=== PATIENT | female | born 2000 | race American Indian/Alaskan Native ===

== ENCOUNTER 2024-10-01 10:51 | Observation (INO) | payer SELFPAY ==
[2024-10-01] VITALS (12 sets, daily range): BP systolic 109–112; BP diastolic 65–69; PULSE 73–84; RESP 16–97; TEMP 36.6; O2SAT 96–97; BMI 47.8
[2024-10-01 11:53] LABS: ROM Kit Lot # 57804092; ROM Swab Mixed By: CHUKK; Rupture of Fetal Membranes Negative (Negative); Swb Mxed in Solvent 1 min? Yes
== END 2024-10-01 12:17 | disposition home or self-care (01) ==
PROVIDERS: Admitting Provider Obstetrics & Gynecology; Visit Provider Advanced Practice Midwife
DX: Z34.90 Encounter for supervision of normal pregnancy, unspecified, unspecified trimester (principal); Z3A.00 Weeks of gestation of pregnancy not specified
CPT/HCPCS: 59025; 59899; 84112

== ENCOUNTER 2024-10-08 02:36 | Inpatient (IN) | payer OTHER, SELFPAY ==
[2024-10-08] VITALS (76 sets, daily range): BP systolic 0–156; BP diastolic 0–94; PULSE 61–84; RESP 16–97; TEMP 36.4–37.1; O2SAT 91–99; BMI 48.1
--- NOTE | 2024-10-08 03:27 | XR_ITS ---
Examination: Complete OB ultrasound greater than 14 weeks Date and time of exam: October 08, 2024 0519 hrs. Indications: Leaking amniotic fluid, patient states her water broke today followed by mild pelvic contractions Findings: Viable intrauterine single fetus with single amniotic sac presentation cephalic Cardiac motion 141 BPM Placenta fundal grade 3 Umbilical cord insertion seen Amniotic fluid index 12.4 cm Ovaries obscured by bowel gas. Composite estimated gestational age based on BPD, head circumference, abdominal circumference, femur length is 38 weeks 5 days Estimated weight 3572.7 g. Survey of intracranial anatomy, spinal anatomy, abdominal anatomy, four-chamber heart performed with no abnormalities identified. Impression: Viable intrauterine gestation cephalic presentation Estimated gestational age 38 weeks 5 days Estimated weight 3572.7 g.
[2024-10-08] MEDS: Ampicillin Inj 2,000 MG in SODIUM CHLORIDE 0.9% (P) 100 ML 200 MG IV (05:06)
[2024-10-08] MEDS: RINGERS LACTATED 1000 ML 1,000 ML 125 ML IV ×2 (05:06→23:12)
[2024-10-08 05:29] LABS: Basophils # (Auto) 0.1 Thou/mm3 (0.0-0.2); Basophils % (Auto) 0 % (0-2.5); Eosinophils # (Auto) 0.3 Thou/mm3 (0.0-0.5); Eosinophils % (Auto) 2 % (0-10); Hematocrit 30.4 % (36.0-46.0); Hemoglobin 10.1 g/dL (12.0-16.0); Immature Granulocytes % (Auto) 1 % (0-0); Immature Granulocytes Auto 0.09 Thou/mm3 (0.00-0.00); Lymphocytes # (Auto) 2.3 Thou/mm3 (1.0-4.8); Lymphocytes % (Auto) 18 % (10-50); Mean Corpuscular HGB Conc 33.2 g/dl (31.0-37.0); Mean Corpuscular Volume 75 fL (80-100); Monocytes # (Auto) 1.1 Thou/mm3 (0.0-0.8); Monocytes % (Auto) 9 % (0-12); Neutrophils # (Auto) 8.7 Thou/mm3 (1.8-7.7); Neutrophils % (Auto) 69 % (37-80); Nucleated Red Blood Cell % 0 /100 WBC (0); Platelet Count 266 Thou/mm3 (140-440); RDW Standard Deviation 40.8 fL (36.4-46.3); Red Blood Count 4.04 Miln/mm3 (4.00-5.20); White Blood Count 12.5 Thou/mm3 (3.6-11.0)
[2024-10-08 05:44] LABS: Amphetamine/Metham Scrn,Ur OB Negative (Negative); Benzoylecgonine Screen, Ur OB Negative (Negative); Opiate Screen,Urine OB Negative (Negative); THC Screen,Urine OB Negative (Negative)
[2024-10-08 06:07] LABS: Syphilis Nonreactive (Nonreactive)
--- NOTE | 2024-10-08 06:36 | PRELIM_ITS ---
Obstetric ultrasound. October 08, 2024 at 0519 hoursClinical history: Rupture of membranes.Comparison : No prior study is available for comparison. Findings:There is a gravid uterus with a live fetus in cephalic presentation of mean gestational age 38 weeks and 5 days (by biometry). cardiac activity is present at a heart rate of 141 beats per minute. The placenta is fundal in location, matu rity grade III. There is no evidence of placenta previa or retroplacental hemorrhage. Amniotic fluid is adequate (CARISA = 12.4 cm). Estimated weight is 3512.7 grams+/- 529 grams. Estimated due date by ultrasound is 10/17/2024. The heart (4 ch), urinary bladder, kidney, stomach and spine are seen.Imp ression:Gravid uterus with a live fetus in cephalic presentation of mean gestational age 38 weeks and 5 days. Report Electronically Signed By: Fabricio West 10/08/2024 6:35:20 AM [EST]
--- NOTE | 2024-10-08 07:38 | PD.LDHP ---
Documentation for date of: 10/08/24 OB Labor/Induct. HPI History of Present Illness Chief complaint: leakage of fluid : 2 Para: 0 Term pregnancies: 0 pregnancies: 0 Living children: 0 History of Abortions: Spontaneous and Elective: 1 History of Vaginal deliveries: 0 History of sections: No ROLF: 10/29/23 Gestational Age (weeks): 37 Gestational Age (days): 0 History of present illness: Patient presents for loss of fluid, clear, that occurred at 0045 on 10/08/24. No regular/painful ctx pattern. No vaginal bleeding. Normal movement. No fevers/chills. History of Present Adequate Care: Yes Obstetrical complications: other (Obesity taking ASA 81mg PO QD) Labs Maternal Blood Type: B Pos Labs: Positive: Group Beta Strep and Negative: RPR, Hepatitis B, Rubella Titre (rubella non-immune), HIV, Chlamydia and Gonorrhea Review of Systems Review of Systems Systems Reviewed: All systems reviewed, normal except as documented Constitutional Constitutional: Denies fever(s) and Denies headache(s) ENT Ears, Nose, Mouth, and Throat: Denies headache(s) Cardiovascular Cardiovascular: Denies chest pain, Denies dyspnea and Denies syncope Respiratory Respiratory: Denies dyspnea Gastrointestinal Gastrointestinal: Denies vomiting Genitourinary Genitourinary: Denies dysuria Neurologic Neurologic: Denies headache(s), Denies seizure-like activity and Denies syncope Past Medical History Family History OTHER FAMILY HX: mother has HTN Surgical History SURGICAL: Negative Section OTHER SURGICAL HX: cholecystectomy Social History SOCIAL: Denies tobacco/ETOH/illicit drug use Past Medical History Comments PMH COMMENT: Obesity Meds Home Medications and Allergies Home Medications ?Medication ?Instructions ?Recorded ?Confirmed ?Type aspirin 81 mg tablet,delayed See Rx Instructions .Route .COMPLEX 10/08/24 10/08/24 History release (Adult Low Dose Aspirin) vits no.124-ferrous fum 1 tab PO DAILY 10/08/24 10/08/24 History 27 mg iron-folic acid 800 mcg tablet ( Vitamin) Allergies Allergy/AdvReac Type Severity Reaction Status Date / Time No Known Allergies Allergy Verified 10/08/24 04:16 OB Exam Physical Exam Vital signs: Temp Pulse Resp BP Pulse Ox 97.6 F 74 16 100/58 L 98 10/08/24 07:29 10/08/24 07:34 10/08/24 07:29 10/08/24 07:34 10/08/24 03:50 Narrative: General: well developed, well nourished, no acute distress, conversant Cardiac: normal heart rate Lungs: breathing without distress Abdomen: soft, gravid, non-tender, no rebound or guarding Extremities: no pain with palpation of calves Detailed Labor and Delivery Exam Dilation (cm): 1 Effacement (%): 60 station: -2 Presentation: Vertex Membranes: ruptured Amniotic fluid: clear monitor accelerations: 15x15 monitor decelerations: None prison variability: Moderate (11-25) Contraction frequency (min): occasional/irregular OB Results Labs 10/08/24 04:00 Labs: Short CBC 10/08/24 Range/Units 04:00 WBC 12.5 H (3.6-11.0) Thou/mm3 Hgb 10.1 L (12.0-16.0) g/dL Hct 30.4 L (36.0-46.0) % Plt Count 266 (140-440) Thou/mm3 Impressions Impression: Examination: Complete OB ultrasound greater than 14 weeks Date and time of exam: October 08, 2024 0519 hrs. Indications: Leaking amniotic fluid, patient states her water broke today followed by mild pelvic contractions Findings: Viable intrauterine single fetus with single amniotic sac presentation cephalic Cardiac motion 141 BPM Placenta fundal grade 3 Umbilical cord insertion seen Amniotic fluid index 12.4 cm Ovaries obscured by bowel gas. Composite estimated gestational age based on BPD, head circumference, abdominal circumference, femur length is 38 weeks 5 days Estimated weight 3572.7 g. Survey of intracranial anatomy, spinal anatomy, abdominal anatomy, four-chamber heart performed with no abnormalities identified. Impression: Viable intrauterine gestation cephalic presentation Estimated gestational age 38 weeks 5 days Estimated weight 3572.7 g. OB Assessment & Plan Assessment and Plan (1) Premature rupture of membranes: Status: Acute Assessment and plan: Magnolia is a 24yo with SIUP at 37w0d presenting with PROM, clear at 0045 on 10/08/24. SCE:160/-2. Occasional/irregular ctx. Vitals wnl, benign exam. Reassuring assessment. Cephalic. EFW 3572g. care: Good PNC with [facility]. Taking ASA 81mg QD for obesity in . Plan: -Admit to L&D -Establish IV, routine labs -CEFM -Regular diet [id number] then clear liquid diet in labor -Therapeutic Program Worker/consent re: augmentation and . Will begin cytotec 50mcg PO Q4hr for cervical ripening. -GBS status: positive. Initiate IV Ampicillin per protocol. -Anticipate -Safe to proceed Latoya Garcia MD (2) Obesity affecting : Status: Acute (1) Premature rupture of membranes Qualifiers: PROM gestational age: full term PROM onset of labor timing: unspecified duration between rupture of membranes and onset of labor Qualified Code(s): O42.92 - Full-term premature rupture of membranes, unspecified as to length of time between rupture and onset of labor (2) Obesity affecting Qualifiers: Obesity type affecting : unspecified obesity Trimester: third trimester Qualified Code(s): O99.213 - Obesity complicating , third trimester
[2024-10-08] MEDS: MISOPROSTOL 50 mCg TABLET PO ×3 (07:55→22:02)
[2024-10-08] MEDS: Ampicillin Inj 1,000 MG in SODIUM CHLORIDE 0.9% (P) 50 ML 50 MG IV ×4 (09:20→21:45)
--- NOTE | 2024-10-08 22:54 | ESPR_ITS ---
Documentation for date of: 10/08/24 OB Labor Progress Note Pelvic Exam Dilation (cm): 1 Effacement (%): 60 station: -2 Contractions Contraction frequency: occasional/irregular Assessment and Plan Comments: I introduced myself to the patient and family as the oncoming OB provider. 24 yo with 37w0d presenting with PROM undergoing induction with misoprostol, still in early labor. ROM at 10/08 00:45. Making slow change with more regular contraction pattern. FHT: Category I [place]: Irregular Continue cervical ripening with PO misoprostol, no signs of chorioamnionitis. Continue ampicillin for GBS positive and PROM. Darcy Munguia MD
[2024-10-09] VITALS (348 sets, daily range): BP systolic 0–160; BP diastolic 0–89; PULSE 59–116; RESP 16–18; TEMP 36.4–37.1; O2SAT 88–100
[2024-10-09] MEDS: Ampicillin Inj 1,000 MG in SODIUM CHLORIDE 0.9% (P) 50 ML 50 MG IV ×5 (02:19→18:30)
[2024-10-09] MEDS: fentaNYL CIT INJ 50 mCg/ML AMP 2ML 100 MCG IVP ×2 (03:00→05:38)
[2024-10-09] MEDS: MISOPROSTOL 50 mCg TABLET PO (03:48)
[2024-10-09] MEDS: OXYTOCIN in NS 30 units 30 UNIT/500 ML BAG IV (08:53)
--- NOTE | 2024-10-09 09:31 | ESPR_ITS ---
Exam Vital Signs Temp Pulse Resp BP Pulse Ox 97.6 F 76 16 125/73 97 10/09/24 07:16 10/09/24 09:18 10/09/24 07:16 10/09/24 09:18 10/09/24 09:28 Objective Labs 10/08/24 04:00 Assessment & Plan Problem List (1) Premature rupture of membranes: Status: Acute (2) Obesity affecting : Status: Acute Plan Comment Plan Comment: 24yo with 37w1d presenting with PROM undergoing induction with misoprostol, still in early labor. ROM at 10/08 00:45. FHT: Category I [place]: q4min s/p misoprostol x4. Starting pitocin, NPO. Continue ampicillin for GBS positive and PROM. No signs of chorioamnionitis. Time Spent With Patient Time: Total time spent is greater than 50% in coordination of care (as documented) at patient's floor/unit and/or counseling patient:
[2024-10-09] MEDS: RINGERS LACTATED 1000 ML 1,000 ML 125 ML IV ×2 (11:38→15:13)
[2024-10-09] MEDS: MINERAL OIL 30 ML UDC TOP (21:25)
[2024-10-09] MEDS: OXYTOCIN in NS 20 units 20 UNIT/1,000 ML BAG 125 UNIT IV (21:35)
[2024-10-09] MEDS: MISOPROSTOL 200 mCg TABLET 800 MCG PR (21:36)
--- NOTE | 2024-10-09 22:30 | OBDSUM_ITS ---
Vacuum Assisted Delivery Additional Comments Additional comments: 24 yo now presented in with PROM on 10/08/2024. She underwent induction with misoprostol and pitocin and progressed to complete. 's head delivered ALEJANDRO and shoulder delivered easily. with spontaneous cry and placed on maternal abdomen. Cord was cut and clamped and cord blood collecting. The placenta delivered with gentle traction. She had an uncomplicated (10/09/2024) and delivered a male , weighing 3420, Apgars 8/9. EBL 300cc. She had a first degree laceration which was repaired in the usual fashion. She has lower uterine segment atony immediately after the delivery which improved with pitocin, misoprostol [place] x1, bimanual massage, and lower uterine segment sweep. All counts correct at the end of the procedure. Patient and infant stable at the end of the delivery. Data (Garcia) Data Hx Section: No : 1 Para: 0 Term: 0 : 0 : 0 Delivery Data (Garcia) Labor Data ROM Date: 10/08/24 ROM Time: 00:45 Rupture Type: SROM Amniotic Fluid: Clear Delivery Data Labor Onset Stage 1 Date: 10/08/24 Labor Onset Stage 1 Time: 07:55 Labor Onset Stage 2 Date: 10/09/24 Labor Onset Stage 2 Time: 21:04 Delivery Date: 10/09/24 Delivery Time: 21:29 Placenta Delivery Date: 10/09/24 Placenta Delivery Time: 21:34 Delivered by: Darcy Munguia Delivery nurse: Willie Jaimes Other staff at delivery: Nursery Nurse Other staff at delivery: Shae Newell Delivery Method Delivery: Vaginal Delivery Type: Spontaneous Presentation: Vertex Anesthesia Type Primary Anesthesia: Epidural Placenta Placenta Delivery: Spontaneous Episiotomy Episiotomy: None Lacerations first degree perineal: Perineal: 1st degree Perineal repair Sutures used for repair: other EBL Estimated blood loss (ml): 300 Complications Complications: None [place] Data (Garcia) Data Gender: Male Infant Weight Grams: 3420 1 Minute Total: 8 5 Minute Total: 9
--- NOTE | 2024-10-09 22:32 | PD.LDDELS ---
Vacuum Assisted Delivery Additional Comments Additional comments: 24 yo now presented in with PROM on 10/08/2024. She underwent induction with misoprostol and pitocin and progressed to complete. 's head delivered ALEJANDRO and shoulder delivered easily. with spontaneous cry and placed on maternal abdomen. Cord was cut and clamped and cord blood collecting. The placenta delivered with gentle traction. She had an uncomplicated (10/09/2024) and delivered a male , weighing 3420, Apgars 8/9. EBL 300cc. She had a first degree laceration which was repaired in the usual fashion. She has lower uterine segment atony immediately after the delivery which improved with pitocin, misoprostol [place] x1, bimanual massage, and lower uterine segment sweep. All counts correct at the end of the procedure. Patient and infant stable at the end of the delivery. Data (Garcia) Data Hx Section: No : 1 Para: 0 Term: 0 : 0 : 0 Delivery Data (Garcia) Labor Data ROM Date: 10/08/24 ROM Time: 00:45 Rupture Type: SROM Amniotic Fluid: Clear Delivery Data Labor Onset Stage 1 Date: 10/08/24 Labor Onset Stage 1 Time: 07:55 Labor Onset Stage 2 Date: 10/09/24 Labor Onset Stage 2 Time: 21:04 Delivery Date: 10/09/24 Delivery Time: 21:29 Placenta Delivery Date: 10/09/24 Placenta Delivery Time: 21:34 Delivered by: Darcy Munguia Delivery nurse: Willie Jaimes Other staff at delivery: Nursery Nurse Other staff at delivery: Shae Newell Delivery Method Delivery: Vaginal Delivery Type: Spontaneous Presentation: Vertex Anesthesia Type Primary Anesthesia: Epidural Placenta Placenta Delivery: Spontaneous Episiotomy Episiotomy: None Lacerations #1: Perineal: 1st degree Perineal repair Sutures used for repair: other EBL Estimated blood loss (ml): 300 Data (Garcia) [place] Data Gender: Male Weight Grams: 3420 1 Minute Total: 8 5 Minute Total: 9
[2024-10-09] MEDS: IBUPROFEN TAB 400 MG TABLET 800 MG PO (22:45)
[2024-10-10 00:19] VITALS: BP 112/75; PULSE 75; RESP 18; TEMP 36.7; O2SAT 97
[2024-10-10] MEDS: HYDROcodone/APAP 5/325 TABLET 2 TAB PO ×3 (05:23→17:33)
[2024-10-10 05:25] VITALS: BP 101/69; PULSE 73; RESP 16; TEMP 36.7; O2SAT 95
[2024-10-10 06:07] LABS: Basophils # (Auto) 0.1 Thou/mm3 (0.0-0.2); Basophils % (Auto) 0 % (0-2.5); Eosinophils # (Auto) 0.2 Thou/mm3 (0.0-0.5); Eosinophils % (Auto) 1 % (0-10); Hematocrit 25.2 % (36.0-46.0); Immature Granulocytes % (Auto) 1 % (0-0); Immature Granulocytes Auto 0.07 Thou/mm3 (0.00-0.00); Lymphocytes # (Auto) 2.1 Thou/mm3 (1.0-4.8); Lymphocytes % (Auto) 15 % (10-50); Mean Corpuscular HGB Conc 31.7 g/dl (31.0-37.0); Mean Corpuscular Hemoglobin 24.5 pg (25.0-35.0); Mean Corpuscular Volume 77 fL (80-100); Monocytes # (Auto) 1.1 Thou/mm3 (0.0-0.8); Monocytes % (Auto) 8 % (0-12); Neutrophils % (Auto) 74 % (37-80); Nucleated Red Blood Cell % 0 /100 WBC (0); Platelet Count 225 Thou/mm3 (140-440); RDW Standard Deviation 42.2 fL (36.4-46.3); Red Blood Count 3.26 Miln/mm3 (4.00-5.20); White Blood Count 13.5 Thou/mm3 (3.6-11.0)
--- NOTE | 2024-10-10 06:23 | PC.NURSE ---
10/10/2024 @ 0620 Dr. Munguia in to see and assess patient. RN reviewed labs with MD, may go home with FE if post HgB low.
--- NOTE | 2024-10-10 07:05 | PD.LDPPPRG ---
Subjective Subjective Interval history: 24 yo now s/p uncomplicated (10/09/2024) EBL 300cc PPD#1 Patient doing well no issues . Baby at beside. . Pain well controlled, bleeding within normal limits. Voiding without issues. No lightheadedness when walking. Exam Vital Signs Temp Pulse Resp BP Pulse Ox O2 Del Method 98.1 F 73 16 101/69 95 Room Air 10/10/24 05:25 10/10/24 05:25 10/10/24 05:25 10/10/24 05:25 10/10/24 05:25 10/10/24 05:25 Narrative Exam General: NAD RESP: normal work of breathing Abdomen: soft, gravid, non-tender, no rebound or guarding, Fundus firm and at approximate levl of the umbilicus Extremities: no pain with palpation of calves and no unilateral swelling Objective Labs 10/10/24 04:01 Labs: Laboratory Results - last 24 hr 10/10/24 04:01 WBC 13.5 H RBC 3.26 L Hgb 8.0 L D Hct 25.2 L MCV 77 L MCH 24.5 L MCHC 31.7 RDW Std Deviation 42.2 Plt Count 225 D Neut % (Auto) 74 Lymph % (Auto) 15 [place] % (Auto) 8 Eos % (Auto) 1 Baso % (Auto) 0 Neut # (Auto) 10.0 H Lymph # (Auto) 2.1 [place] # (Auto) 1.1 H Eos # (Auto) 0.2 Baso # (Auto) 0.1 Immature Gran # (Auto) 0.07 H Absolute Nucleated RBC 0.00 Immature Gran % 1 H Nucleated RBC % 0 Assessment & Plan Problem List (1) Obesity affecting : Status: Acute (2) Normal vaginal delivery: Status: Acute (3) Anemia: Status: Acute Assessment Comment Assessment comment: 24 yo now s/p uncomplicated (10/09/2024) EBL 300cc Doing well . Vitals wnl, benign exam. Hemodynamically stable with no evidence of infection. Plan Comment Plan Comment: -Meeting milestones -Hemodynamically stable 10.1 -> 300cc EBL -> 8.0 AM -Regular diet - Ferrous sulfate for acute on chronic anemia -Encourage ambulation Time Spent With Patient Time: Total time spent is greater than 50% in coordination of care (as documented) at patient's floor/unit and/or counseling patient:
--- NOTE | 2024-10-10 07:10 | ESDS_ITS ---
DS: Providers Provider Date of admission: 10/08/24 03:35 Primary care physician: Physician No Primary/Family Admitting Provider: Latoya Garcia MD Attending Provider on Admission: Darcy Munguia MD Consults: 10/09/24 23:23 Referral Routine Comment: Attending Provider on DC: Darcy Munguia MD Discharging Provider: Darcy Munguia MD DS: Diagnosis Problem List Completed Was Problem List Reviewed/Reconciled?: Yes Summary/Hosp Course Brief History: Patient presents for loss of fluid, clear, that occurred at 0045 on 10/08/24. No regular/painful ctx pattern. No vaginal bleeding. Normal movement. No fevers/chills. Hospital course: 24 yo now presented in with PROM on 10/08/2024. She underwent induction with misoprostol and pitocin and progressed to complete. She had an uncomplicated (10/09/2024) and delivered a male , weighing 3420, Apgars 8/9. EBL 300cc. She had a first degree laceration which was repaired in the usual fashion. She received misoprostol [place] x1. Patient received routine care and was meeting all milestones on PPD1 and was discharged home in stable condition. Status at Discharge Overall status at discharge: patient is not back to baseline Time Spent with Patient Time attestation: Total time spent providing and/or coordinating discharge services: Exam Vital Signs Temp Pulse Resp BP Pulse Ox O2 Del Method 98.1 F 73 16 101/69 95 Room Air 10/10/24 05:25 10/10/24 05:25 10/10/24 05:25 10/10/24 05:25 10/10/24 05:25 10/10/24 05:25 Narrative Exam General: NAD RESP: normal work of breathing Abdomen: soft, gravid, non-tender, no rebound or guarding, Fundus firm and at approximate levl of the umbilicus Extremities: no pain with palpation of calves and no unilateral swelling Discharge Plan Plan Patient Disposition: HOME (Self Care) Patient condition on transfer: Stable Prescriptions/Referrals Prescriptions/Med Rec: New acetaminophen 325 mg Tablet 650 mg PO Q4H PRN (Reason: See Comments) Qty: 20 0RF hydrocodone-acetaminophen 5-325 mg Tablet 1 tab PO Q4HR MDD 4 tabs PRN (Reason: Patient rated pain 7 to 8) Qty: 6 0RF ibuprofen 400 mg Tablet 800 mg PO Q8H PRN (Reason: See Comments) Qty: 20 0RF ferrous sulfate 325 mg (65 mg iron) tablet 325 mg PO QDAY Qty: 30 0RF docusate sodium [Colace] 100 mg capsule 100 mg PO QDAY Qty: 30 0RF Continued Vitamin 27 mg iron- 800 mcg Tablet 1 tab PO DAILY Discontinued aspirin [Adult Low Dose Aspirin] 81 mg Tablet,Delayed Release (Dr/Ec) See Rx Instructions .ROUTE .COMPLEX Rx Instructions: once a day Referrals: No Primary/Family,Physician [Primary Care Provider] - Patient/Caregiver Discharge Instructions Discharge Activity: activity as tolerated Education Materials: After a Vaginal Print Language: Vietnamese Stand Alone Forms: Tabitha Award Info., Patient Portal Info Letter Discharge Order Discharge Orders: Discharge (Routine); Ordered 10/10/24 Ordered By: Darcy Munguia Planned Discharge Date 10/10/24
[2024-10-10 09:30] VITALS: BP 111/73; PULSE 87; RESP 18; TEMP 36.6; O2SAT 98
[2024-10-10 12:30] VITALS: BP 113/75; PULSE 75; RESP 16; TEMP 36.6; O2SAT 97
[2024-10-10 16:50] VITALS: BP 117/84; PULSE 73; RESP 17; TEMP 36.5; O2SAT 96
[2024-10-10 21:00] VITALS: BP 122/84; PULSE 95; RESP 18; TEMP 36.5; O2SAT 97
[2024-10-11 01:00] VITALS: BP 98/64; PULSE 84; RESP 16; TEMP 36.8; O2SAT 96
[2024-10-11] MEDS: IBUPROFEN TAB 400 MG TABLET 800 MG PO (04:30)
[2024-10-11 08:00] VITALS: BP 125/85; PULSE 82; RESP 18; TEMP 36.6; O2SAT 97
--- NOTE | 2024-10-11 09:24 | PC.NURSE ---
Cleared by essence from social studies department chair
--- NOTE | 2024-10-11 10:27 | PC.SS ---
LINEWORKER conducted bedside contact with the patient to address nursing referral indicating patient possessed history of past THC use. Present with patient was adult sister. Patient gave permission for visitor to be present during discussion. LINEWORKER introduced self, role and basis of referral. Patient confirmed past use of THC to address sleep difficulty. Upon confirmation of , patient ceased use. Patient does not plan on resuming THC use. , Petros; is the patient?s second child. Other child is 1 years old. delivered naturally. Patient declined to identify FOB. Per the patient, FOB will not be involved in the rearing of the . OB services provided by Dr. Castellanos. 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 Patient denies history of alcohol/drug use. Patient denies CWS intervention. Patient denies episodes of domestic violence. Patient states consistency with OB appointments. Patient has access to appropriate supplies and equipment. Family will provide transportation upon discharge. Patient describes possessing support system consisting of parents and extended family. Community resources provided to the patient. No further intervention required at this time, social services designee will be available to address any further concerns. LINEWORKER updated bedside nurse.
== END 2024-10-11 10:15 | disposition home or self-care (01) | DRG 807 ==
LOC: S4SX 10-10 07:07 → S4NX 10-10 09:38
PROVIDERS: Admitting Provider Obstetrics & Gynecology; Visit Provider Obstetrics & Gynecology
DX: O42.02 Full-term premature rupture of membranes, onset of labor within 24 hours of rupture (principal); Z37.0 Single live birth; O70.0 First degree perineal laceration during delivery; Z3A.37 37 weeks gestation of pregnancy; O99.824 Streptococcus B carrier state complicating childbirth; O99.214 Obesity complicating childbirth; O99.02 Anemia complicating childbirth
CPT/HCPCS: 36415; 59409; 76805; 80307; 85025; 86780; 86850; 86900; 86901; 94762; J0290; J2590; J2795; J3010; J7050; J7120; S0191; A9270